=== PATIENT | female | born 1985 | race Two or more races ===

== ENCOUNTER → 2019-05-07 | Outpatient (CLI) | payer BC ==
--- NOTE | 2019-05-07 18:13 | RAD ---
Examination: US PELVIS W/TV History: Pelvic pain Comparison/Correlation: None Findings: Transvaginal pelvic ultrasound exam was performed. Transabdominal images of the adnexal regions were obtained. Uterus measures 6.8 cm x 3.8 cm. Endometrial thickness of up to 0.6 cm the fundus is present. Myometrium is unremarkable. Right ovary measures 2.1 cm x 2.4 cm x 3.2 cm. Left ovary measures 1.4 cm x 3.4 cm x 3.7 cm. Prominent vascularity on color Doppler imaging bilaterally seen. Adnexal follicles are present bilaterally. Ovaries are unremarkable and spectral Doppler imaging. No pelvic free fluid. Impression: Prominent adnexal vasculature raises question of pelvic congestion syndrome. No mass lesion delineated. Electronically signed by: Antonio Barrios MD (05/07/2019 6:10 PM) [facility]
== END | disposition home or self-care (01) ==
LOC: US 10:10
PROVIDERS: ATTEND Physician Assistant Medical
DX: R10.2 Pelvic and perineal pain (principal)
CPT/HCPCS: 76830; 76856

== ENCOUNTER 2019-06-27 12:49 | Emergency (ER) | payer BC ==
[2019-06-27 13:04] VITALS: BP 108/64
[2019-06-27] MEDS ORDERED: LIDO:MAALOX 1:1 20 ML SINGLE DOSE. PO ONE (13:30)
[2019-06-27] MEDS ORDERED: ONDANSETRON ODT 4 MG TAB.RAPDIS PO ONE (13:30)
[2019-06-27] MEDS ORDERED: ONDA4TAB12 PO (13:39)
[2019-06-27] MEDS ORDERED: LIDO15SO2 SWSW (13:39)
--- NOTE | 2019-06-27 13:39 | PHYS DOC ---
Past History Past Medical History: No Pertinent History Past Surgical History: Tubal ligation Alcohol Use: None Drug Use: None Adult General Chief Complaint Chief Complaint: SORE THROAT HPI HPI Patient is a 34-year-old female who presents with complaint of sore throat and fever. Patient was seen at clinic a couple of days ago and was started on amoxicillin for strep throat. Patient was also tested for the flu and was found negative. Patient is taken 2 days of antibiotics so far and is not feeling better yet. Patient states that it's painful to swallow.[] Review of Systems Review of Systems Constitutional: Positive fever and chills [] HENT: Positive sore throat [] Respiratory: Denies cough or shortness of breath [] Cardiovascular: No additional information not addressed in HPI [] Integument: Denies rash or skin lesions [] Neurologic: Denies headache, focal weakness or sensory changes [] Current Medications Current Medications Current Medications Medications (Trade) Dose Ordered Sig/Kaylan Start Time Stop Time Status Last Admin Dose Admin Multi-Ingredient Mouthwash/Gargle (Gi Cocktail) 20 ml 1X ONCE 06/27/19 13:15 06/27/19 13:16 UNV Ondansetron HCl (Zofran Odt) 4 mg 1X ONCE 06/27/19 13:15 06/27/19 13:16 UNV Allergies Allergies Allergies Coded Allergies Type Severity Reaction Last Updated Verified No Known Drug Allergies 06/27/19 No Physical Exam Physical Exam Constitutional: Well developed, well nourished, no acute distress, non-toxic appearance. [] HENT: Normocephalic, atraumatic, TMs are normal, pharyngeal erythema is noted in. [] Cardiovascular: Regular rate and rhythm[] Lungs & Thorax: Bilateral breath sounds clear to auscultation [] Skin: Warm, dry, no erythema, no rash. [] Current Patient Data Vital Signs Vital Signs Date Time Temp Pulse Resp B/P (MAP) Pulse Ox O2 Delivery O2 Flow Rate FiO2 06/27/19 13:04 99.5 113 20 100 Room Air EKG EKG [] Radiology/Procedures Radiology/Procedures [] Course & Med Decision Making Course & Med Decision Making Pertinent Labs and Imaging studies reviewed. (See chart for details) [] Dragon Disclaimer Dragon Disclaimer This electronic medical record was generated, in whole or in part, using a voice recognition dictation system. Departure Departure: Impression: Primary Impression: Pharyngitis Disposition: HOME, SELF-CARE Condition: IMPROVED Referrals: OJ STAFFORD (PCP) Patient Instructions: Viral and Bacterial Pharyngitis Scripts Ondansetron (ONDANSETRON ODT) 4 Mg Tab.rapdis 1 TAB PO PRN Q6-8HRS PRN for NAUSEA, #12 TAB Prov: AMANDA KELLY Jr. DO 06/27/19 Lidocaine HCl (Lidocaine HCl Viscous) 15 Ml Solution 5 ML SWSW Q2HR PRN for SORE THROAT, #100 ML Prov: AMANDA KELLY Jr. DO 06/27/19 Problem Qualifiers Primary Impression: Pharyngitis Pharyngitis/tonsillitis etiology: unspecified etiology Qualified Codes: J02.9 - Acute pharyngitis, unspecified AMANDA KELLY Jr. DO Jun 27, 2019 13:39
== END 2019-06-27 13:50 | disposition home or self-care (01) ==
LOC: ER 12:49
DX: J02.9 Acute pharyngitis, unspecified (principal)
CPT/HCPCS: 99283

== ENCOUNTER → 2020-09-04 | Outpatient (CLI) | payer OTHER ==
[~2020-09-04] MED LIST: LIDO20SO10 SWSW; ONDA4TAB12 PO
--- NOTE | 2020-09-04 17:27 | RAD ---
EXAM: PA and Lateral Views of the Chest DATE: 09/04/2020 5:19 PM INDICATION: Reason: CHEST PAIN. / Spl. Instructions: / History: COMPARISON: No Prior FINDINGS: The heart is not enlarged. Mediastinal and hilar contours are normal. No focal parenchymal airspace opacity. No pleural effusion or pneumothorax. IMPRESSION: 1. No radiographic evidence for acute cardiopulmonary process. Electronically signed by: Anurag Duron MD (09/04/2020 5:24 PM) [facility]
== END ==
LOC: RAD 17:08
PROVIDERS: ATTEND Nurse Practitioner Family
DX: R07.9 Chest pain, unspecified (principal); Z68.35 Body mass index [BMI] 35.0-35.9, adult
CPT/HCPCS: 71046

== ENCOUNTER 2021-01-15 13:09 | Emergency (ER) | payer OTHER ==
[~2021-01-15] VITALS: Ht 157.5 cm; Wt 65.0 kg
[2021-01-15 13:28] VITALS: BP 111/82
[2021-01-15 14:20] LABS: BASO # 0.2 x10^3/uL (0.0-0.2); BASO % 2 % (0-3); EOS # 0.2 x10^3/uL (0.0-0.7); EOS % 2 % (0-3); HEMATOCRIT 36.1 % (36.0-47.0); LYMPH # 2.1 x10^3/uL (1.0-4.8); LYMPH % 24 % (24-48); MEAN CORPUSCULAR HEMOGLOBIN 29 pg (25-35); MEAN CORPUSCULAR HGB CONC 33 g/dL (31-37); MEAN CORPUSCULAR VOLUME 87 fL (79-100); MONO # 0.5 x10^3/uL (0.0-1.1); MONO % 6 % (0-9); NEUT # 5.9 x10^3uL (1.8-7.7); NEUT % 66 % (31-73); PLATELET COUNT 482 x10^3/uL (140-400); RED BLOOD COUNT 4.14 x10^6/uL (3.50-5.40); RED CELL DISTRIBUTION WIDTH 14.5 % (11.5-14.5); WHITE BLOOD COUNT 8.9 x10^3/uL (4.0-11.0)
[2021-01-15 14:25] LABS: BILIRUBIN,URINE NEG (NEG); CLARITY,URINE CLEAR; COLOR,URINE YELLOW; GLUCOSE,URINE NEG (NEG); NITRITE,URINE NEG (NEG); UROBILINOGEN,URINE 0.2 mg/dL (0.2 mg/dL)
[2021-01-15 14:26] LABS: BACTERIA,URINE 0 /HPF (0-FEW); RBC,URINE 20-40 /HPF (0-2); WBC,URINE 0 /HPF (0-4)
[2021-01-15 14:29] LABS: CALCIUM 8.6 mg/dL (8.5-10.1); CREATININE 0.8 mg/dL (0.6-1.0); GFR 80.7; POTASSIUM 4.4 mmol/L (3.5-5.1)
--- NOTE | 2021-01-15 15:48 | PHYS DOC ---
Past History Past Medical History: No Pertinent History Past Surgical History: Other Additional Past Surgical Histo: tuballilgation Alcohol Use: None Drug Use: None General Adult EDM: Chief Complaint: SYNCOPE HPI: HPI: Patient is a 35-year-old female being seen in the ER today for heavy vaginal bleeding. Patient reports that she started her menses on December 27 and has just continued to have heavy vaginal bleeding since then. She reports a syncopal episode last week. She states that the blood is dark red with clots. She does not have an OB. She is also reporting left lower quadrant/pelvic pain. She is saturating 1 pad every 2 hours. She reports history of lightheadedness and nausea. She denies currently nausea, vomiting, fevers, shortness of breath, chest pain, back pain. Review of Systems: Review of Systems: 14 body systems of the review of systems have been reviewed. See HPI for pertinent positive and negative responses, otherwise all other systems are negative, nonpertinent or noncontributory Allergies: Allergies: Allergies Coded Allergies Type Severity Reaction Last Updated Verified No Known Drug Allergies 06/27/19 No Physical Exam: PE: Constitutional: Well developed, well nourished, no acute distress, non-toxic appearance. [] HENT: Normocephalic, atraumatic Eyes: PERRL, conjunctiva normal, no discharge. [] Neck: Normal range of motion, no tenderness, supple, no stridor. [] Cardiovascular:Heart rate regular rhythm, no murmur [] Lungs & Thorax: Bilateral breath sounds clear to auscultation [] Abdomen: Bowel sounds normal, soft, no masses, no pulsatile masses, left lower quadrant/pelvic pain with palpation, no rebound tenderness, negative Rovsing sign [] Skin: Warm, dry, no erythema, no rash. [] Back: No tenderness, no CVA tenderness. [] Extremities: No tenderness, no cyanosis, no clubbing, ROM intact, no edema. [] Neurologic: Alert and oriented X 3, normal motor function, normal sensory function, no focal deficits noted. [] Psychologic: Affect normal, judgement normal, mood normal. [] Factory Worker: Dark vaginal bleeding with clots noted during pelvic exam, left adnexal tenderness. Patient refused and had no concern for STI testing. Current Patient Data: Labs: Laboratory Tests Test 01/15/21 13:49 7/26/21 14:00 White Blood Count 8.9 x10^3/uL (4.0-11.0) Red Blood Count 4.14 x10^6/uL (3.50-5.40) Hemoglobin 12.0 g/dL (12.0-15.5) Hematocrit 36.1 % (36.0-47.0) Mean Corpuscular Volume 87 fL (79-100) Mean Corpuscular Hemoglobin 29 pg (25-35) Mean Corpuscular Hemoglobin Concent 33 g/dL (31-37) Red Cell Distribution Width 14.5 % (11.5-14.5) Platelet Count 482 x10^3/uL (140-400) H Neutrophils (%) (Auto) 66 % (31-73) Lymphocytes (%) (Auto) 24 % (24-48) Monocytes (%) (Auto) 6 % (0-9) Eosinophils (%) (Auto) 2 % (0-3) Basophils (%) (Auto) 2 % (0-3) Neutrophils # (Auto) 5.9 x10^3uL (1.8-7.7) Lymphocytes # (Auto) 2.1 x10^3/uL (1.0-4.8) Monocytes # (Auto) 0.5 x10^3/uL (0.0-1.1) Eosinophils # (Auto) 0.2 x10^3/uL (0.0-0.7) Basophils # (Auto) 0.2 x10^3/uL (0.0-0.2) Urine Collection Type Unknown Urine Color Yellow Urine Clarity Clear Urine pH 6.0 Urine Specific [place] 1.025 Urine Protein Neg (NEG-TRACE) Urine Glucose (UA) Neg mg/dL (NEG) Urine Ketones (Stick) Neg mg/dL (NEG) Urine Blood Mod (NEG) Urine Nitrite Neg (NEG) Urine Bilirubin Neg (NEG) Urine Urobilinogen Dipstick 0.2 mg/dL (0.2 mg/dL) Urine Leukocyte Esterase Neg (NEG) Urine RBC 20-40 /HPF (0-2) Urine WBC 0 /HPF (0-4) Urine Bacteria 0 /HPF (0-FEW) Sodium Level 141 mmol/L (136-145) Potassium Level 4.4 mmol/L (3.5-5.1) Chloride Level 105 mmol/L (98-107) Carbon Dioxide Level 29 mmol/L (21-32) Anion Gap 7 (6-14) Blood Urea Nitrogen 11 mg/dL (7-20) Creatinine 0.8 mg/dL (0.6-1.0) Estimated GFR (Cockcroft-Gault) 80.7 Glucose Level 90 mg/dL (70-99) Calcium Level 8.6 mg/dL (8.5-10.1) Vital Signs: Vital Signs Date Time Temp Pulse Resp B/P (MAP) Pulse Ox O2 Delivery O2 Flow Rate FiO2 01/15/21 13:28 98.1 79 12 111/82 98 Room Air EKG: EKG: [] Radiology/Procedures: Radiology/Procedures: PROCEDURE: US PELVIS W/TV Pelvic ultrasound, transabdominal and transvaginal: Reason for examination: Abnormal vaginal bleeding. History of tubal ligation. Transabdominal and transvaginal ultrasound examination of the pelvis was performed. Transabdominally, the bladder is not optimally distended. Uterus appears to be retroverted. The ovaries are not optimally visualized transabdominally. Transvaginally, the uterus measures 7.4 x 3.9 x 3.9 cm in greatest dimension. Endometrium is not abnormally thickened at 4 mm. There does however appear to be a small amount of fluid in endometrial cavity and some increased vascularity in the uterine fundus. There is a small nabothian cysts in the cervix. The left ovary measures 3.8 x 2.5 x 1.5 cm in greatest dimension and shows normal vascularity with small follicles present. The right ovary measures 2.2 x 1.9 x 1.7 cm in greatest dimension and shows normal vascularity and shows a few small follicles. A trace of free fluid is seen in the pelvic cul-de-sac. IMPRESSION: Increased vascularity in the uterine fundus with small amount of fluid in the endometrial cavity but no abnormal thickening of the endometrium is evident. Small follicles present in the ovaries bilaterally. Trace of free fluid in the pelvic cul-de-sac. Electronically signed by: Melonie Barger MD (01/15/2021 4:55 PM) [facility] DICTATED AND SIGNED BY: MELONIE BARGER MD DATE: 01/15/21 165 CC: KADE DE LUNA MD; LACEY HUNTER APRN; OJ STAFFORD ~MTH0 0 Heart Score: C/O Chest Pain: No Risk Factors: Risk Factors: DM, Current or recent (<one month) smoker, HTN, HLP, family history of CAD, obesity. Risk Scores: Score 0 - 3: 2.5% MACE over next 6 weeks - Discharge Home Score 4 - 6: 20.3% MACE over next 6 weeks - Admit for Clinical Observation Score 7 - 10: 72.7% MACE over next 6 weeks - Early Invasive Strategies Course & Med Decision Making: Course & Med Decision Making Pertinent Labs and Imaging studies reviewed. (See chart for details) Patient is a 35-year-old female being seen for heavy vaginal bleeding and left lower abdominal pain. Lab work was unremarkable. Patient had ultrasound of her pelvis and it showed good blood flow to both ovaries, increased vascularity uterine fundus without thickening. I discussed patient's case with supervising physician. Patient to follow-up outpatient with OB. Patient given information on Dr. Heck at [facility]. I spoke with Dr. Garcia who agreed to see patient out patient. I discussed with patient all findings and diagnostic testing as well as the need to follow-up with PCP for further evaluation and treatment or return to the ER if any new or worsening symptoms. Strict return precautions were also discussed at length. Patient voiced understanding and agreement with the plan. Patient is hemodynamically stable at the time of disposition. Dragon Disclaimer: Dragon Disclaimer: This electronic medical record was generated, in whole or in part, using a voice recognition dictation system. Departure Departure: Impression: Primary Impression: Dysfunctional uterine bleeding Disposition: HOME / SELF CARE / HOMELESS Condition: GOOD Referrals: OJ STAFFORD (PCP) Patient Instructions: Uterine Bleeding, Dysfunctional Additional Instructions: You were seen in the ER today for heavy and prolonged menstrual bleeding. As we discussed, your blood work was unremarkable. Your hemoglobin and hematocrit levels were within normal limits indicating that you are not having excessive bleeding requiring a blood transfusion. Your pelvic ultrasound showed good blood flow to both ovaries. Please follow-up with your primary care provider tomorrow regarding your ER visit today. Ensure that you are drinking plenty of fluids and staying hydrated. It is necessary that you follow-up with an [employer]. You can follow-up with Dr. Heck or Dr. Garcia at [facility]. Call his office tomorrow, the number is [phone]. Return to the ER if you are saturating more than 1 pad per hour or if you develop syncope, lightheadedness, chest pain, shortness of breath, severe abdominal pain, severe back pain. EMERGENCY DEPARTMENT GENERAL DISCHARGE INSTRUCTIONS Thank you for coming to [facility] (ED) today and trusting us with you care. We trust that you had a positivie experience in our Emergency Department. If you wish to speak to the department management, you may call the director at [phone]. YOUR FOLLOW UP INSTRUCTIONS ARE FOLLOWS: 1. Do you have a private Doctor? If you do not have a private doctor, please ask for a resource list of physicians or clinics that may be able to assist you with fo llow up care. 2. The Emergency Physician has interpreted your x-rays. The X-Ray specialist will also review them. If there is a change in the findings, you will be notified in 48 hours when at all possible. 3. A lab test or culture has been done, your results will be reviewed and you will be notified if you need a change in treatment. ADDITIONAL INSTRUCTIONS AND INFORMATION: 1. Your care today has been supervised by a physician who is specially trained in emergency care. Many problems require more than one evaluation for a complete diagnosis and treatment. We recommend that you schedule your follow up appointment as recommended to ensure complete treatment of you illness or injury. If you are unable to obtain follow up care and continue to have a problem, or if your condition worsens, we recommend that you return to the ED. 2. We are not able to safely determine your condition over the phone nor are we able to give sound medical advice over the phone. For these safety reasons, if you call for medical advice we will ask you to come to the ED for further evaluation. 3. If you have any questions regarding these discharge instructions please call the ED at [phone]. SAFETY INFORMATION: In the interest of safety, wellness, and injury prevention; we encourage you to wear your sealbelt, if you smoke; quite smoking, and we encourage family to use a protecti ve helmet for bicycling and other sporting events that present an increased risk for head injury. IF YOUR SYMPTOMS WORSEN OR NEW SYMPTOMS DEVELOP, OR YOU HAVE CONCERNS ABOUT YOUR CONDITION; OR IF YOUR CONDITION WORSENS WHILE YOU ARE WAITING FOR YOUR FOLLOW UP APPOINTMENT; EITHER CONTACT YOUR PRIMARY CARE DOCTOR, THE PHYSICIAN WHOSE NAME AND NUMBER YOU WERE GIVEN, OR RETURN TO THE ED IMMEDIATELY. LACEY HUNTER AERONAUTICAL INSPECTOR Jan 15, 2021 15:48
[2021-01-15 16:21] LABS: U PREG PATIENT NEGATIVE (NEG)
--- NOTE | 2021-01-15 16:58 | RAD ---
Pelvic ultrasound, transabdominal and transvaginal: Reason for examination: Abnormal vaginal bleeding. History of tubal ligation. Transabdominal and transvaginal ultrasound examination of the pelvis was performed. Transabdominally, the bladder is not optimally distended. Uterus appears to be retroverted. The ovari es are not optimally visualized transabdominally. Transvaginally, the uterus measures 7.4 x 3.9 x 3.9 cm in greatest dimension. Endometrium is not abno rmally thickened at 4 mm. There does however appear to be a small amount of fluid in endometrial cavi ty and some increased vascularity in the uterine fundus. There is a small nabothian cysts in the cerv ix. The left ovary measures 3.8 x 2.5 x 1.5 cm in greatest dimension and shows normal vascularity with sm all follicles present. The right ovary measures 2.2 x 1.9 x 1.7 cm in greatest dimension and shows normal vascularity and sh ows a few small follicles. A trace of free fluid is seen in the pelvic cul-de-sac. IMPRESSION: Increased vascularity in the uterine fundus with small amount of fluid in the endometrial cavity but no abnormal thickening of the endometrium is evident. Small follicles present in the ovaries bilaterally. Trace of free fluid in the pelvic cul-de-sac. Electronically signed by: Melonie Davis MD (01/15/2021 4:55 PM) [facility]
== END 2021-01-15 18:18 | disposition home or self-care (01) ==
LOC: ER 13:09
DX: N93.8 Other specified abnormal uterine and vaginal bleeding (principal); R55 Syncope and collapse
CPT/HCPCS: 36415; 76830; 76856; 80048; 81001; 81025; 85025; 99284